=== PATIENT | male | born 1990 | race Caucasian/White ===

== ENCOUNTER 2017-03-06 10:36 | Emergency (ER) | payer SELFPAY ==
[~2017-03-06] VITALS: Ht 175.3 cm; Wt 73.0 kg
[2017-03-06 10:48] VITALS: BP 123/60
== END 2017-03-06 12:14 | disposition home or self-care (01) ==
LOC: ER 11:38
DX: B37.2 Candidiasis of skin and nail (principal); Z88.0 Allergy status to penicillin
CPT/HCPCS: 99283

== ENCOUNTER 2017-04-10 18:54 | Emergency (ER) | payer MEDICAID ==
[~2017-04-10] VITALS: Ht 177.8 cm; Wt 64.0 kg
[2017-04-10 19:08] VITALS: BP 149/84
== END 2017-04-11 01:15 | disposition left against medical advice (07) ==
LOC: ER 18:54
DX: R00.0 Tachycardia, unspecified (principal); Z53.21 Procedure and treatment not carried out due to patient leaving prior to being seen by health care provider
CPT/HCPCS: 93005

== ENCOUNTER 2017-09-07 22:54 | Emergency (ER) | payer MEDICAID ==
[~2017-09-07] VITALS: Ht 175.3 cm; Wt 73.0 kg
[2017-09-07 23:25] VITALS: BP 146/90
== END 2017-09-08 02:39 | disposition left against medical advice (07) ==
LOC: ER 22:55
DX: R05 Cough (principal); R06.02 Shortness of breath; R13.10 Dysphagia, unspecified; R03.0 Elevated blood-pressure reading, without diagnosis of hypertension; F14.10 Cocaine abuse, uncomplicated; F10.10 Alcohol abuse, uncomplicated; F17.210 Nicotine dependence, cigarettes, uncomplicated; Y90.9 Presence of alcohol in blood, level not specified
CPT/HCPCS: 93005; 99283; Z7610

== ENCOUNTER 2018-01-02 09:33 | Emergency (ER) | payer MEDICAID ==
[~2018-01-02] VITALS: Ht 170.2 cm; Wt 65.0 kg
[2018-01-02 09:34] VITALS: BP 158/86
== END 2018-01-02 10:19 | disposition left against medical advice (07) ==
LOC: ER 09:33
DX: R11.0 Nausea (principal); Z53.21 Procedure and treatment not carried out due to patient leaving prior to being seen by health care provider

== ENCOUNTER 2018-02-09 09:46 | Emergency (ER) | payer OTHER, MEDICAID ==
[~2018-02-09] VITALS: Ht 175.3 cm; Wt 72.0 kg
[2018-02-09] MEDS ORDERED: TETANUS, DIPHTHERIA, PERTUSSIS VAC/PF 0.5ML (>7YR OLD) IM ONE (11:15)
[2018-02-09 11:18] VITALS: BP 148/51
== END 2018-02-09 11:41 | disposition home or self-care (01) ==
LOC: ER 09:46
DX: S61.215A Laceration without foreign body of left ring finger without damage to nail, initial encounter (principal); Y93.G1 Activity, food preparation and clean up; Y92.89 Other specified places as the place of occurrence of the external cause; Z88.3 Allergy status to other anti-infective agents
CPT/HCPCS: 90471; 90715; 99283

== ENCOUNTER 2018-02-26 01:14 | Emergency (ER) | payer MEDICAID ==
[~2018-02-26] VITALS: Ht 175.3 cm; Wt 75.0 kg
[2018-02-26 01:39] VITALS: BP 138/70
== END 2018-02-26 02:40 | disposition home or self-care (01) ==
LOC: ER 01:14
DX: F14.10 Cocaine abuse, uncomplicated (principal); Z88.0 Allergy status to penicillin
CPT/HCPCS: 99281

== ENCOUNTER 2018-05-12 16:17 | Emergency (ER) | payer OTHER, MEDICAID ==
[~2018-05-12] VITALS: Ht 167.6 cm; Wt 73.0 kg
[2018-05-12] MEDS ORDERED: SODIUM CHLORIDE 0.9% 1,000 ML IV ONE (16:52)
[2018-05-12] MEDS: MORPHINE SULFATE 4 MG/ML CPJ (NOT FOR IM USE) IV STA ×3 (17:04→17:49)
[2018-05-12] MEDS ORDERED: FENTANYL CITRATE/PF 50MCG/ML 2ML VIAL IV ONE (17:30)
[2018-05-12] MEDS ORDERED: LORAZEPAM 2MG/ML CPJ IV ONE (17:30)
[2018-05-12 18:43] VITALS: BP 132/72
== END 2018-05-12 18:59 | disposition home or self-care (01) ==
LOC: ER 16:17
DX: S52.041A Displaced fracture of coronoid process of right ulna, initial encounter for closed fracture (principal); S53.195A Other dislocation of left ulnohumeral joint, initial encounter; W17.89XA Other fall from one level to another, initial encounter; Y93.9 Activity, unspecified; Y92.9 Unspecified place or not applicable; Z88.3 Allergy status to other anti-infective agents
CPT/HCPCS: 29105; 73070; 96374; 96375; 99283; J2060; J2270; J3010; J7030

== ENCOUNTER 2018-05-17 09:10 | Emergency (ER) | payer OTHER, MEDICAID ==
[~2018-05-17] VITALS: Ht 180.3 cm; Wt 73.0 kg
[2018-05-17] MEDS: HYDROCODONE/ACETAMINOPHEN 5/325MG TABLET PO ONE ×2 (10:32→10:54)
[2018-05-17] MEDS: ONDANSETRON 4MG ODT PO ONE ×2 (10:33→10:54)
[2018-05-17 10:54] VITALS: BP 134/50
== END 2018-05-17 11:00 | disposition home or self-care (01) ==
LOC: ER 09:10
DX: M25.521 Pain in right elbow (principal); M79.601 Pain in right arm; R03.0 Elevated blood-pressure reading, without diagnosis of hypertension; Z88.1 Allergy status to other antibiotic agents
CPT/HCPCS: 29105; 73080; 99283; Q0162

== ENCOUNTER 2018-05-25 10:44 | Emergency (ER) | payer MEDICAID, OTHER | END 2018-05-25 12:05 | disposition left against medical advice (07) | LOC: ER 11:46 | DX: Z53.21 Procedure and treatment not carried out due to patient leaving prior to being seen by health care provider (principal) ==

== ENCOUNTER 2018-05-27 10:41 | Emergency (ER) | payer MEDICAID ==
[~2018-05-27] VITALS: Ht 180.3 cm; Wt 75.0 kg
[2018-05-27 10:56] VITALS: BP 110/57
== END 2018-05-27 12:19 | disposition home or self-care (01) ==
LOC: ER 11:02
DX: S53.104D Unspecified dislocation of right ulnohumeral joint, subsequent encounter (principal); M25.521 Pain in right elbow; Z88.1 Allergy status to other antibiotic agents; W18.39XD Other fall on same level, subsequent encounter
CPT/HCPCS: 29105; 99283

== ENCOUNTER 2018-06-08 09:04 | Emergency (ER) | payer MEDICAID ==
[~2018-06-08] VITALS: Ht 175.3 cm; Wt 73.0 kg
[2018-06-08 09:10] VITALS: BP 132/79
[2018-06-08] MEDS ORDERED: LIDOCAINE HCL 1% 20ML VIAL (Pyxis) INJ ONE (10:34)
[2018-06-08] MEDS ORDERED: SODIUM BICARBONATE 4% (2.4MEQ) 5ML VIAL IV ONE (10:35)
== END 2018-06-08 13:42 | disposition left against medical advice (07) ==
LOC: ER 09:04
DX: S42.401G Unspecified fracture of lower end of right humerus, subsequent encounter for fracture with delayed healing (principal); W01.0XXD Fall on same level from slipping, tripping and stumbling without subsequent striking against object, subsequent encounter; Z88.3 Allergy status to other anti-infective agents
CPT/HCPCS: 73080; 99283; J3490

== ENCOUNTER 2023-08-12 00:24 | Emergency (ER) | payer MEDICAID, OTHER ==
[~2023-08-12] VITALS: Ht 175.3 cm; Wt 70.0 kg
[2023-08-12 00:26] VITALS: TEMP 98.2; O2SAT 96
[2023-08-12] MEDS ORDERED: TETANUS, DIPHTHERIA, PERTUSSIS VAC/PF 0.5ML (>10YR OLD) IM ONE (01:30)
[2023-08-12] MEDS: MORPHINE SULFATE 4 MG/ML INJ (FOR IV/IM USE) IV STA (01:40)
[2023-08-12] MEDS: ONDANSETRON HCL 4MG/2ML INJ IV STA (01:41)
[2023-08-12 01:46] LABS: HEMATOCRIT. 46.6 % (42.0-52.0); HEMOGLOBIN. 16.1 g/dL (14.0-18.0); MEAN CORPUSCULAR HEMOGLOBIN 31.6 pg (28.0-32.0); MEAN CORPUSCULAR HGB CONC 34.6 g/dL (31.0-37.0); MEAN CORPUSCULAR VOLUME 91.5 fL (80.0-94.0); PLATELET 181 x1000/uL (130-400); RED BLOOD CELL COUNT 5.09 mill/uL (4.7-6.1); WHITE BLOOD COUNT 11.6 x1000/uL (4.5-11.0)
[2023-08-12 01:50] LABS: DIFFERENTIAL COMMENT 1
[2023-08-12 01:53] LABS: CHLORIDE 106 mEq/L (98-107); POTASSIUM 3.8 mEq/L (3.5-5.1); SODIUM 141 mEq/L (136-145)
[2023-08-12 01:54] LABS: CARBON DIOXIDE 29 mEq/L (21-32)
[2023-08-12 01:59] LABS: CREATININE 1.1 mg/dL (0.6-1.3); GLUCOSE 99 mg/dL (70-105)
[2023-08-12 02:00] LABS: UREA NITROGEN BLOOD 9 mg/dL (9-23)
[2023-08-12 02:05] LABS: ATYPICAL LYMPHOCYTES 1; PLATELET ESTIMATE NORMAL
[2023-08-12 02:06] LABS: TEAR DROP CELLS 1+
[2023-08-12] MEDS: SODIUM CHLORIDE 0.9% 1,000 ML IV ONE (02:49)
[2023-08-12] MEDS: TETANUS, DIPHTHERIA, PERTUSSIS VAC/PF 0.5ML (>10YR OLD) IM ONE (04:24)
[2023-08-12] MEDS ORDERED: IBUP-2029 MT (05:06)
[2023-08-12 05:49] VITALS: BP 138/70; PULSE 98; RESP 18
[2023-08-12] MEDS: HYDROCODONE/ACETAMINOPHEN 10/325MG TABLET PO ONE (05:49)
[2023-08-12] MEDS ORDERED: IOHEXOL-300 100 ML BOTTLE ONE (06:05)
== END 2023-08-12 06:00 | disposition home or self-care (01) ==
LOC: ER 00:24
DX: S20.212A Contusion of left front wall of thorax, initial encounter (principal); S00.83XA Contusion of other part of head, initial encounter; Z88.0 Allergy status to penicillin; Y04.0XXA Assault by unarmed brawl or fight, initial encounter; Y93.89 Activity, other specified; Y92.89 Other specified places as the place of occurrence of the external cause; Y99.8 Other external cause status
CPT/HCPCS: 99291; 70450; 96374; 71045; 96361; 96375; 80048; 85025; 36415; 70486; 71260; 72125; 74177; 90715; 90471; Q9967; J2405; J2270; J7030